=== PATIENT | male | born 1970 | race American Indian/Alaskan Native ===

== ENCOUNTER 2016-10-13 16:43 | Emergency (ER) | payer MEDICARE ==
--- NOTE | 2016-10-13 16:57 | Emergency Department Report ---
Chief Complaint: Psych Stated Complaint: MED CLEARANCE Time Seen by Provider: 10/13/16 16:48 - HPI History of Present Illness: PT states he needs medical clearance for detox. PT states he has spent the past few days using on the street, last use was last night. - ROS Review of Systems: + substance abuse - si - cp - Exam Vital Signs: Vital Signs 10/13/16 16:49 Temperature 98.5 F Pulse Rate 73 Respiratory 18 Rate Blood Pressure 115/84 O2 Sat by Pulse 100 Oximetry MSE screening note: Focused history and physical exam performed. Due to findings the following was ordered: labs ED Disposition for MSE Condition: Stable
[2016-10-13 17:35] LABS: Basophils % (Auto) 1.1 % (0.0-1.8); Eosinophils % (Auto) 6.1 % (0.0-4.3); Hematocrit 42.2 % (35.5-45.6); Hemoglobin 14.1 gm/dl (11.8-15.2); Mean Corpuscular HGB Conc 34 % (32-34); Mean Corpuscular Hemoglobin 30 pg (28-32); Mean Corpuscular Volume 90 fl (84-94); Platelet Count 252 K/mm3 (140-440); Red Cell Distribution Width 15.6 % (13.2-15.2); White Blood Count 9.6 K/mm3 (4.5-11.0)
[2016-10-13 17:50] LABS: Urine Drugs of Abuse Note Disclamer
[2016-10-13 18:04] LABS: Bilirubin,Urine NEG (Negative); Blood,Urine NEG (Negative); Ketones,Urine NEG (Negative); Leukocyte Esterase,Urine LG (Negative); Mucus,Urine FEW /HPF; Nitrite,Urine NEG (Negative); Protein,Urine <15 mg/dL mg/dL (Negative)
[2016-10-13 18:16] LABS: Alanine Aminotransferase 26 units/L (7-56); Albumin 3.9 g/dL (3.9-5); Albumin/Globulin Ratio 1.1 %; Alkaline Phosphatase 74 units/L (35-129); Anion Gap 19 mmol/L; Blood Urea Nitrogen 6 mg/dL (9-20); Calcium 8.9 mg/dL (8.4-10.2); Carbon Dioxide 26 mmol/L (22-30); Chloride 99.7 mmol/L (98-107); Glucose 95 mg/dL (75-100); Potassium 3.3 mmol/L (3.6-5.0); Sodium 141 mmol/L (137-145); Total Protein 7.5 g/dL (6.3-8.2)
[2016-10-13] MEDS ORDERED: K-DUR PO ONE (20:03)
[2016-10-13] MEDS ORDERED: BENTYL PO ONE (20:10)
[2016-10-13] MEDS ORDERED: CARAFATE PO ONE (20:10)
--- NOTE | 2016-10-13 20:11 | Emergency Department Report ---
ED Medical Clearance HPI - General Chief complaint: Psych Stated complaint: MED CLEARANCE Time Seen by Provider: 10/13/16 16:48 Source: patient, RN notes reviewed, old records reviewed Mode of arrival: Ambulatory Limitations: No Limitations - History of Present Illness Initial comments: This is a 46-year-old male. I have evaluated him in the past. Past medical history includes H. pylori, GI bleed, crack cocaine use, who presents to the ER for medical clearance for crack cocaine and alcohol detox. His last consumption was yesterday. He reports like he feels like he is withdrawing. He denies headache, neck pain, chest pain, severe abdominal pain, shortness of breath. He does describe diffuse body aches. He is not homicidal or suicidal. He does not have access to guns or firearms. He reports that he feels quite motivated to detox. He denies testicular pain, and denies irritative and obstructive urinary symptoms. MD Complaint: medical clearance request -: Sudden Reason for Medical Clearance: psychiatric condition Place: home Alledged Intoxication: No Compliant with Home Medications: No Traumatic Symptoms: denies traumatic injury Associated Symptoms: malaise. denies: chest pain, shortness of breath, palpitations, diaphoresis, confusion, cough, fever/chills, headaches Treatments Prior to Arrival: none Home medications: Previous Rx's Medication Instructions Recorded Last Taken Type Clarithromycin [Biaxin] 500 mg PO Q12HR #20 tablet 12/06/14 Unknown Rx Folic Acid [Folvite] 1 mg PO QDAY #30 tablet 12/06/14 Unknown Rx Nortriptyline [Pamelor] 50 mg PO QHS #30 capsule 12/06/14 Unknown Rx Pantoprazole [Protonix TAB] 40 mg PO BID #20 tablet 12/06/14 Unknown Rx Thiamine [Vitamin B-1] 100 mg PO QDAY #30 tablet 12/06/14 Unknown Rx metroNIDAZOLE [Flagyl TAB] 500 mg PO Q12H #20 tablet 12/06/14 Unknown Rx Potassium Chloride [K-Dur] 20 meq PO QDAY #7 tablet 10/13/16 Unknown Rx Allergies/Adverse reactions: Allergies Allergy/AdvReac Type Severity Reaction Status Date / Time Penicillins Allergy Swelling Verified 12/03/14 15:31 ED Review of Systems ROS: Stated complaint: MED CLEARANCE Other details as noted in HPI Constitutional: malaise Eyes: denies: vision change ENT: denies: epistaxis Respiratory: denies: cough Cardiovascular: denies: chest pain Gastrointestinal: denies: abdominal pain Genitourinary: denies: dysuria Musculoskeletal: myalgia. denies: back pain Skin: denies: lesions Neurological: weakness Psychiatric: denies: homicidal thoughts, suicidal thoughts ED Past Medical Hx - Past Medical History Previous Medical History?: Yes Hx Hypertension: Yes (noncompliant with meds) Hx Congestive Heart Failure: No Hx Diabetes: No Hx Psychiatric Treatment: Yes (ETOH, crack cocaine) Hx Asthma: No Hx COPD: No Additional medical history: chronic pain - Surgical History Past Surgical History?: Yes Additional Surgical History: right knee and maxillofacial surgery - Social History Smoking Status: Current Some Day Smoker Substance Use Type: Alcohol, Cocaine - Medications Home Medications: Home Medications Medication Instructions Recorded Confirmed Last Taken Type Clarithromycin [Biaxin] 500 mg PO Q12HR #20 tablet 12/06/14 Unknown Rx Folic Acid [Folvite] 1 mg PO QDAY #30 tablet 12/06/14 Unknown Rx Nortriptyline [Pamelor] 50 mg PO QHS #30 capsule 12/06/14 Unknown Rx Pantoprazole [Protonix TAB] 40 mg PO BID #20 tablet 12/06/14 Unknown Rx Thiamine [Vitamin B-1] 100 mg PO QDAY #30 tablet 12/06/14 Unknown Rx metroNIDAZOLE [Flagyl TAB] 500 mg PO Q12H #20 tablet 12/06/14 Unknown Rx Potassium Chloride [K-Dur] 20 meq PO QDAY #7 tablet 10/13/16 Unknown Rx ED Physical Exam - General Limitations: No Limitations General appearance: alert, in no apparent distress - Head Head exam: Present: atraumatic, normocephalic - Eye Eye exam: Present: normal appearance, PERRL, EOMI, other (visual acuity intact to finger counting, color perception, reading at a close distance). Absent: nystagmus - ENT ENT exam: Present: normal exam, normal orophraynx, mucous membranes moist, normal external ear exam - Neck Neck exam: Present: normal inspection, full ROM. Absent: tenderness, meningismus - Respiratory Respiratory exam: Present: normal lung sounds bilaterally. Absent: respiratory distress, wheezes, rales, rhonchi, stridor, chest wall tenderness, accessory muscle use, decreased breath sounds, prolonged expiratory - Cardiovascular Cardiovascular Exam: Present: regular rate, normal rhythm, normal heart sounds. Absent: bradycardia, tachycardia, irregular rhythm, systolic murmur, diastolic murmur, rubs, gallop - GI/Abdominal GI/Abdominal exam: Present: soft, normal bowel sounds. Absent: distended, tenderness, guarding, rebound, rigid, pulsatile mass - Rectal Rectal exam: Present: deferred - Extremities Exam Extremities exam: Present: normal inspection, full ROM, normal capillary refill. Absent: tenderness, pedal edema, joint swelling, calf tenderness - Back Exam Back exam: Present: normal inspection, full ROM. Absent: tenderness, CVA tenderness (R), CVA tenderness (L), muscle spasm, paraspinal tenderness, vertebral tenderness - Neurological Exam Neurological exam: Present: alert, oriented X3, normal gait, other (Extraocular movements intact. Tongue midline. No facial droop. Facial sensation intact to light touch in the V1, V2, V3 distribution bilaterally. 5 and 5 strength in 4 extremities.. Sensation is intact to light touch in 4 extremities.). Absent : motor sensory deficit - Psychiatric Psychiatric exam: Present: normal affect, normal mood. Absent: homicidal ideation, suicidal ideation - Skin Skin exam: Present: warm, dry, intact, normal color. Absent: rash ED Course Vital Signs 10/13/16 10/13/16 10/13/16 16:49 19:40 20:03 Temperature 98.5 F Pulse Rate 73 81 Respiratory 18 16 16 Rate Blood Pressure 115/84 Blood Pressure 109/74 [Left] O2 Sat by Pulse 100 99 99 Oximetry ED Medical Decision Making - Lab Data Result diagrams: 10/13/16 17:04 10/13/16 17:04 Vital Signs 10/13/16 10/13/16 16:49 20:03 Temperature 98.5 F Pulse Rate 73 Respiratory 18 16 Rate Blood Pressure 115/84 O2 Sat by Pulse 100 99 Oximetry Lab Results 10/13/16 10/13/16 10/13/16 Range/Units 17:04 17:04 17:04 WBC 9.6 (4.5-11.0) K/mm3 RBC 4.70 (3.65-5.03) M/mm3 Hgb 14.1 (11.8-15.2) gm/dl Hct 42.2 (35.5-45.6) % MCV 90 (84-94) fl MCH 30 (28-32) pg MCHC 34 (32-34) % RDW 15.6 H (13.2-15.2) % Plt Count 252 (140-440) K/mm3 Lymph % (Auto) 17.5 (13.4-35.0) % [place] % (Auto) 8.8 H (0.0-7.3) % Eos % (Auto) 6.1 H (0.0-4.3) % Baso % (Auto) 1.1 (0.0-1.8) % Lymph # 1.7 (1.2-5.4) K/mm3 [place] # 0.8 (0.0-0.8) K/mm3 Eos # 0.6 H (0.0-0.4) K/mm3 Baso # 0.1 (0.0-0.1) K/mm3 Seg Neutrophils % 66.5 (40.0-70.0) % Seg Neutrophils # 6.4 (1.8-7.7) K/mm3 Sodium 141 (137-145) mmol/L Potassium 3.3 L (3.6-5.0) mmol/L Chloride 99.7 (98-107) mmol/L Carbon Dioxide 26 (22-30) mmol/L Anion Gap 19 mmol/L BUN 6 L (9-20) mg/dL Creatinine 0.8 (0.8-1.5) mg/dL Estimated GFR > 60 ml/min BUN/Creatinine Ratio 7.50 % Glucose 95 (75-100) mg/dL Calcium 8.9 (8.4-10.2) mg/dL Magnesium (1.7-2.3) mg/dL Total Bilirubin 0.50 (0.1-1.2) mg/dL AST 28 (5-40) units/L ALT 26 (7-56) units/L Alkaline Phosphatase 74 (35-129) units/L Total Creatine Kinase (55-170) units/L Total Protein 7.5 (6.3-8.2) g/dL Albumin 3.9 (3.9-5) g/dL Albumin/Globulin Ratio 1.1 % Urine Color (Yellow) Urine Turbidity (Clear) Urine pH (5.0-7.0) Ur Specific [place] (1.003-1.030) Urine Protein (Negative) mg/dL Urine Glucose (UA) (Negative) mg/dL Urine Ketones (Negative) mg/dL Urine Blood (Negative) Urine Nitrite (Negative) Urine Bilirubin (Negative) Urine Urobilinogen (<2.0) mg/dL Ur Leukocyte Esterase (Negative) Urine WBC (Auto) (0.0-6.0) /HPF Urine RBC (Auto) (0.0-6.0) /HPF U Epithel Cells (Auto) (0-13.0) /HPF Urine Mucus /HPF Salicylates < 0.3 L (2.8-20.0) mg/dL Urine Opiates Screen Urine Methadone Screen Acetaminophen (10.0-30.0) ug/mL Ur Barbiturates Screen Ur Phencyclidine Scrn Ur Amphetamines Screen U Benzodiazepines Scrn Urine Cocaine Screen U Marijuana (THC) Screen Drugs of Abuse Note Plasma/Serum Alcohol (0-0.07) gm% 10/13/16 10/13/16 10/13/16 Range/Units 17:04 17:04 17:04 WBC (4.5-11.0) K/mm3 RBC (3.65-5.03) M/mm3 Hgb (11.8-15.2) gm/dl Hct (35.5-45.6) % MCV (84-94) fl MCH (28-32) pg MCHC (32-34) % RDW (13.2-15.2) % Plt Count (140-440) K/mm3 Lymph % (Auto) (13.4-35.0) % [place] % (Auto) (0.0-7.3) % Eos % (Auto) (0.0-4.3) % Baso % (Auto) (0.0-1.8) % Lymph # (1.2-5.4) K/mm3 [place] # (0.0-0.8) K/mm3 Eos # (0.0-0.4) K/mm3 Baso # (0.0-0.1) K/mm3 Seg Neutrophils % (40.0-70.0) % Seg Neutrophils # (1.8-7.7) K/mm3 Sodium (137-145) mmol/L Potassium (3.6-5.0) mmol/L Chloride (98-107) mmol/L Carbon Dioxide (22-30) mmol/L Anion Gap mmol/L BUN (9-20) mg/dL Creatinine (0.8-1.5) mg/dL Estimated GFR ml/min BUN/Creatinine Ratio % Glucose (75-100) mg/dL Calcium (8.4-10.2) mg/dL Magnesium 1.70 (1.7-2.3) mg/dL Total Bilirubin (0.1-1.2) mg/dL AST (5-40) units/L ALT (7-56) units/L Alkaline Phosphatase (35-129) units/L Total Creatine Kinase 185 H (55-170) units/L Total Protein (6.3-8.2) g/dL Albumin (3.9-5) g/dL Albumin/Globulin Ratio % Urine Color (Yellow) Urine Turbidity (Clear) Urine pH (5.0-7.0) Ur Specific [place] (1.003-1.030) Urine Protein (Negative) mg/dL Urine Glucose (UA) (Negative) mg/dL Urine Ketones (Negative) mg/dL Urine Blood (Negative) Urine Nitrite (Negative) Urine Bilirubin (Negative) Urine Urobilinogen (<2.0) mg/dL Ur Leukocyte Esterase (Negative) Urine WBC (Auto) (0.0-6.0) /HPF Urine RBC (Auto) (0.0-6.0) /HPF U Epithel Cells (Auto) (0-13.0) /HPF Urine Mucus /HPF Salicylates (2.8-20.0) mg/dL Urine Opiates Screen Urine Methadone Screen Acetaminophen < 15.0 (10.0-30.0) ug/mL Ur Barbiturates Screen Ur Phencyclidine Scrn Ur Amphetamines Screen U Benzodiazepines Scrn Urine Cocaine Screen U Marijuana (THC) Screen Drugs of Abuse Note Plasma/Serum Alcohol < 0.01 (0-0.07) gm% 10/13/16 10/13/16 Range/Units 17:47 17:47 WBC (4.5-11.0) K/mm3 RBC (3.65-5.03) M/mm3 Hgb (11.8-15.2) gm/dl Hct (35.5-45.6) % MCV (84-94) fl MCH (28-32) pg MCHC (32-34) % RDW (13.2-15.2) % Plt Count (140-440) K/mm3 Lymph % (Auto) (13.4-35.0) % [place] % (Auto) (0.0-7.3) % Eos % (Auto) (0.0-4.3) % Baso % (Auto) (0.0-1.8) % Lymph # (1.2-5.4) K/mm3 [place] # (0.0-0.8) K/mm3 Eos # (0.0-0.4) K/mm3 Baso # (0.0-0.1) K/mm3 Seg Neutrophils % (40.0-70.0) % Seg Neutrophils # (1.8-7.7) K/mm3 Sodium (137-145) mmol/L Potassium (3.6-5.0) mmol/L Chloride (98-107) mmol/L Carbon Dioxide (22-30) mmol/L Anion Gap mmol/L BUN (9-20) mg/dL Creatinine (0.8-1.5) mg/dL Estimated GFR ml/min BUN/Creatinine Ratio % Glucose (75-100) mg/dL Calcium (8.4-10.2) mg/dL Magnesium (1.7-2.3) mg/dL Total Bilirubin (0.1-1.2) mg/dL AST (5-40) units/L ALT (7-56) units/L Alkaline Phosphatase (35-129) units/L Total Creatine Kinase (55-170) units/L Total Protein (6.3-8.2) g/dL Albumin (3.9-5) g/dL Albumin/Globulin Ratio % Urine Color Yellow (Yellow) Urine Turbidity Clear (Clear) Urine pH 6.0 (5.0-7.0) Ur Specific [place] 1.015 (1.003-1.030) Urine Protein <15 mg/dl (Negative) mg/dL Urine Glucose (UA) Neg (Negative) mg/dL Urine Ketones Neg (Negative) mg/dL Urine Blood Neg (Negative) Urine Nitrite Neg (Negative) Urine Bilirubin Neg (Negative) Urine Urobilinogen 4.0 (<2.0) mg/dL Ur Leukocyte Esterase Lg (Negative) Urine WBC (Auto) 47.0 H (0.0-6.0) /HPF Urine RBC (Auto) 5.0 (0.0-6.0) /HPF U Epithel Cells (Auto) 5.0 (0-13.0) /HPF Urine Mucus Few /HPF Salicylates (2.8-20.0) mg/dL Urine Opiates Screen Presumptive negative Urine Methadone Screen Presumptive negative Acetaminophen (10.0-30.0) ug/mL Ur Barbiturates Screen Presumptive negative Ur Phencyclidine Scrn Presumptive negative Ur Amphetamines Screen Presumptive negative U Benzodiazepines Scrn Presumptive negative Urine Cocaine Screen Presumptive positive U Marijuana (THC) Screen Presumptive negative Drugs of Abuse Note Disclamer Plasma/Serum Alcohol (0-0.07) gm% - Medical Decision Making Differential diagnosis: Polysubstance abuse, electrolyte derangement, medical clearance for psychiatric placement, medical clearance for detox Assessment and plan: 46-year-old male requesting detox. He is clinically sober at this time, walks with a steady gait, has a GCS of 15, with an NIH score of 0. Laboratory studies unremarkable with the exception of mild hypokalemia. This is repleted. Patient tolerating liquid feeds. Does not meet criteria for requiring 1013 or involuntary hold. At this point in time, there does not appear to be any immediate medical contraindication to psychiatric admission/ evaluation/detox. Patient was seen in conjunction with the crisis team, and he was provided appropriate outpatient resources for detox. He will be discharged at this time. ED Disposition Clinical Impression: Polysubstance abuse Disposition: DC-01 TO HOME OR SELFCARE Is pt being admited?: No Does the pt Need Aspirin: No Condition: Stable Instructions: Polysubstance Abuse (ED) Additional Instructions: Discontinue consumption of crack cocaine and ethanol alcohol. These are not healthy. At this point in time, there is no immediate medical contraindication to detox therapy. The patient may follow-up at [facility] detox: [address] [address] Free Assessments 28/09 (t) Please return to the ER right away with fevers, chills, chest pain, shortness of breath, confusion, intractable nausea or vomiting, inability to tolerate liquid feeds. Take the potassium supplementation as directed. Follow up with a primary care doctor within the next month. Prescriptions: Potassium Chloride [K-Dur] 20 meq PO QDAY #7 tablet Referrals: PRIMARY CARE,MD [Primary Care Provider] - 3-5 Days MICHELLE NOVA MD [Staff Physician] - 3-5 Days [facility] [Provider Group] - 3-5 Days
[2016-10-13 20:27] LABS: Magnesium 1.7 mg/dL (1.7-2.3)
[2016-10-13 22:17] VITALS: BP 109/74
== END 2016-10-13 22:15 | disposition home or self-care (01) ==
LOC: ED 16:43
DX: F14.10 Cocaine abuse, uncomplicated (principal); G89.29 Other chronic pain; F17.200 Nicotine dependence, unspecified, uncomplicated; Z88.0 Allergy status to penicillin
CPT/HCPCS: 36415; 80053; 80307; 81001; 82550; 83735; 85025; 99284; G0480; 80320

== ENCOUNTER 2017-02-06 12:44 | Emergency (ER) | payer MEDICARE ==
--- NOTE | 2017-02-06 13:47 | Cat Scan Report ---
CT SCAN OF THE CERVICAL SPINE: HISTORY: Swelling, injury. TECHNIQUE: Contiguous 1.25 mm axial images of the cervical spine were obtained. Sagittal and coronal reformatted images. FINDINGS: There is normal alignment of the cervical spine. The body, pedicles and posterior ligaments appear normal. No evidence of fracture or subluxation is seen. Mild multilevel degenerative changes are identified which are most pronounced at C5-6. The spinal canal appears normal. The prevertebral soft tissues appear normal. IMPRESSION: Mild cervical spondylosis. No acute process is noted.
--- NOTE | 2017-02-06 13:47 | Cat Scan Report ---
CT HEAD WITHOUT CONTRAST: HISTORY: Swelling, head injury. TECHNIQUE: Sequential 2.5mm CT images. COMPARISON: none. FINDINGS: Cerebral Parenchyma: Within normal limits. Cerebellum: Within normal limits. Brainstem: Within normal limits. Ventricles: Normal. Sella: Normal. Extra-axial spaces: Normal. Basal Cisterns: Normal. Intracranial Hemorrhage: None. Midline Shift: None. Calvarium: Normal. There is moderate left frontal soft tissue swelling or hematoma. Sinuses: Normal. Mastoid Air Cells: Normal. Visualized Orbits: Normal. IMPRESSION: Cranial CT scan within normal limits. Left frontal soft tissue swelling.
--- NOTE | 2017-02-06 13:50 | Cat Scan Report ---
CT FACIAL BONES WITHOUT CONTRAST: HISTORY: Injury, swelling to face. TECHNIQUE: Helical CT images with sagittal and coronal CT reformations. FINDINGS: Left frontal soft tissue swelling. There has been previous internal fixation of a left inferior orbital wall fracture and left lateral orbital rim fracture, correlate with history. Chronic appearing bilateral nasal bone fractures are also suspected. No acute facial fracture is visualized. The mandible is intact. There is mild mucosal thickening throughout the frontal, maxillary and ethmoid sinuses. The mastoid air cells are clear. There is poor dentition. IMPRESSION: Left frontal soft tissue swelling. Chronic facial fractures as described. No acute facial fracture is detected.
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
[2017-02-06] MEDS ORDERED: ANCEF IM ONE (16:09)
[2017-02-06] MEDS ORDERED: BOOSTRIX IM ONE (16:09)
[2017-02-06] MEDS ORDERED: TRIPLE ANTIBIOTIC TP ONE ×2 (17:26→17:29)
[2017-02-06 17:35] VITALS: BP 122/80
== END 2017-02-06 18:20 | disposition home or self-care (01) ==
LOC: ED 12:44
DX: S00.81XA Abrasion of other part of head, initial encounter (principal); Y08.89XA Assault by other specified means, initial encounter; Y93.89 Activity, other specified; Y92.89 Other specified places as the place of occurrence of the external cause; Y99.8 Other external cause status; I10 Essential (primary) hypertension; F17.200 Nicotine dependence, unspecified, uncomplicated
CPT/HCPCS: 70450; 70486; 72125; 90471; 90715; 96372; 99284; J0690; A6250

== ENCOUNTER 2018-08-31 09:55 | Emergency (ER) | payer MEDICARE ==
[2018-08-31 10:01] VITALS: BP 110/87
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
[2018-08-31] MEDS ORDERED: TORADOL IM ONE (12:16)
== END 2018-08-31 12:39 | disposition home or self-care (01) ==
LOC: ED 09:55
DX: S51.811D Laceration without foreign body of right forearm, subsequent encounter (principal); L03.113 Cellulitis of right upper limb; L08.9 Local infection of the skin and subcutaneous tissue, unspecified; I10 Essential (primary) hypertension; G89.29 Other chronic pain; Z98.890 Other specified postprocedural states; F17.200 Nicotine dependence, unspecified, uncomplicated; Z79.899 Other long term (current) drug therapy; Z88.0 Allergy status to penicillin; X58.XXXD Exposure to other specified factors, subsequent encounter
CPT/HCPCS: 96372; 99282; J1885

== ENCOUNTER 2018-09-07 02:59 | Emergency (ER) | payer MEDICARE ==
[2018-09-07 03:38] LABS: Basophils # (Auto) 0.1 K/mm3 (0.0-0.1); Basophils % (Auto) 1.2 % (0.0-1.8); Eosinophils # (Auto) 0.2 K/mm3 (0.0-0.4); Eosinophils % (Auto) 2.2 % (0.0-4.3); Hematocrit 34.8 % (35.5-45.6); Hemoglobin 11.7 gm/dl (11.8-15.2); Lymphocytes % (Auto) 19.1 % (13.4-35.0); Mean Corpuscular HGB Conc 34 % (32-34); Mean Corpuscular Volume 87 fl (84-94); Monocytes # (Auto) 0.6 K/mm3 (0.0-0.8); Monocytes % (Auto) 5.5 % (0.0-7.3); Platelet Count 286 K/mm3 (140-440); Red Cell Distribution Width 16.2 % (13.2-15.2)
[2018-09-07 04:19] LABS: BUN/Creatinine Ratio 7; Blood Urea Nitrogen 7 mg/dL (9-20); Calcium 8.9 mg/dL (8.4-10.2); Hemolysis Index 3
[2018-09-07 04:22] LABS: Bacteria,Urine 1+ /HPF (Negative); Bilirubin,Urine NEG (Negative); Blood,Urine NEG (Negative); Color,Urine Yellow (Yellow); Mucus,Urine FEW /HPF; Protein,Urine <15 mg/dL mg/dL (Negative); Urobilinogen,Urine < 2.0 mg/dL (<2.0)
[2018-09-07 04:23] LABS: WBC,Urine > 182.0 /HPF (0.0-6.0)
[2018-09-07 04:27] LABS: Amphetamine Screen,Urine PRESUMPTIVE NEGATIVE; Benzodiazepines Screen,Urine PRESUMPTIVE NEGATIVE; Cannabinoid Screen,Urine PRESUMPTIVE NEGATIVE; Methadone Screen,Urine PRESUMPTIVE NEGATIVE; Opiate Screen,Urine PRESUMPTIVE NEGATIVE
[2018-09-07 04:57] LABS: Cocaine Screen,Urine PRESUMPTIVE POSITIVE
[2018-09-07 05:22] VITALS: BP 128/82
[2018-09-07] MEDS ORDERED: K-DUR PO ONE (07:41)
--- NOTE | 2018-09-07 07:46 | Emergency Department Report ---
ED General Adult HPI - General Chief complaint: Medical Clearance Stated complaint: MED CLEARANCE Time Seen by Provider: 09/07/18 06:55 Source: patient, RN notes reviewed, old records reviewed Mode of arrival: Ambulatory Limitations: No Limitations - History of Present Illness Initial comments: This is a 48-year-old gentleman. I have evaluated this patient in the past. His past medical history includes crack cocaine use, alcohol use, H. pylori Patient presents to the emergency room today with a primary complaint of request for detox for alcohol. He endorses chronic migrainous headaches, frontal and bitemporal, although, he states that this is his typical headache. The patient denies a sudden or thunderclap headache. He denies other symptoms. He denies urinary symptoms. He is not homicidal or suicidal. The headache is intermittent, does not radiate anywhere, and does not have exacerbating or relieving factors that he is aware of, besides [id number] medications. He was recently seen in this department for suture repair, found to have a superficial right upper extremity infection, and initiated on Bactrim antibiotic therapy, which she states she has intermittent compliance with. Location: head Severity scale (0 -10): 0 Quality: aching Consistency: intermittent Improves with: medication Worsens with: none - Related Data Previous Rx's Medication Instructions Recorded Last Taken Type Clarithromycin [Biaxin] 500 mg PO Q12HR #20 tablet 12/06/14 Unknown Rx Folic Acid [Folvite] 1 mg PO QDAY #30 tablet 12/06/14 Unknown Rx Nortriptyline(Nf) [Pamelor(Nf)] 50 mg PO QHS #30 capsule 12/06/14 Unknown Rx Pantoprazole [Protonix TAB] 40 mg PO BID #20 tablet 12/06/14 Unknown Rx Thiamine [Vitamin B-1] 100 mg PO QDAY #30 tablet 12/06/14 Unknown Rx metroNIDAZOLE [Flagyl TAB] 500 mg PO Q12H #20 tablet 12/06/14 Unknown Rx Potassium Chloride [K-Dur] 20 meq PO QDAY #7 tablet 10/13/16 Unknown Rx Ibuprofen [Motrin] 600 mg PO Q8H PRN #30 tablet 07/11/18 Unknown Rx Ibuprofen [Motrin 800 MG tab] 800 mg PO Q8HR PRN #20 tablet 08/31/18 Unknown Rx Sulfamethoxazole/Trimethoprim 1 each PO BID #14 tablet 08/31/18 Unknown Rx [Bactrim DS TAB] Allergies Allergy/AdvReac Type Severity Reaction Status Date / Time Penicillins Allergy Swelling Verified 02/06/17 12:49 ED Review of Systems ROS: Stated complaint: MED CLEARANCE Other details as noted in HPI Constitutional: denies: fever Eyes: denies: eye discharge Respiratory: denies: cough Cardiovascular: denies: chest pain Gastrointestinal: denies: abdominal pain Genitourinary: denies: urgency, dysuria, frequency, hematuria, testicular pain Musculoskeletal: denies: myalgia Skin: lesions (right upper extremity) Neurological: denies: weakness, numbness, paresthesias, confusion Psychiatric: denies: homicidal thoughts, suicidal thoughts ED Past Medical Hx - Past Medical History Previous Medical History?: Yes Hx Hypertension: Yes (noncompliant with meds) Hx Congestive Heart Failure: No Hx Diabetes: No Hx Seizures: Yes Hx Psychiatric Treatment: Yes (ETOH, crack cocaine) Hx Asthma: No Hx COPD: No Additional medical history: chronic pain - Surgical History Past Surgical History?: Yes Additional Surgical History: right ankle and maxillofacial surgery - Social History Smoking Status: Current Every Day Smoker Substance Use Type: Alcohol - Medications Home Medications: Home Medications Medication Instructions Recorded Confirmed Last Taken Type Clarithromycin [Biaxin] 500 mg PO Q12HR #20 tablet 12/06/14 Unknown Rx Folic Acid [Folvite] 1 mg PO QDAY #30 tablet 12/06/14 Unknown Rx Nortriptyline(Nf) [Pamelor(Nf)] 50 mg PO QHS #30 capsule 12/06/14 Unknown Rx Pantoprazole [Protonix TAB] 40 mg PO BID #20 tablet 12/06/14 Unknown Rx Thiamine [Vitamin B-1] 100 mg PO QDAY #30 tablet 12/06/14 Unknown Rx metroNIDAZOLE [Flagyl TAB] 500 mg PO Q12H #20 tablet 12/06/14 Unknown Rx Potassium Chloride [K-Dur] 20 meq PO QDAY #7 tablet 10/13/16 Unknown Rx Ibuprofen [Motrin] 600 mg PO Q8H PRN #30 tablet 07/11/18 Unknown Rx Ibuprofen [Motrin 800 MG tab] 800 mg PO Q8HR PRN #20 tablet 08/31/18 Unknown Rx Sulfamethoxazole/Trimethoprim 1 each PO BID #14 tablet 08/31/18 Unknown Rx [Bactrim DS TAB] ED Physical Exam - General Limitations: No Limitations General appearance: alert, in no apparent distress - Head Head exam: Present: atraumatic, normocephalic - Eye Eye exam: Present: normal appearance, EOMI. Absent: nystagmus - ENT ENT exam: Present: normal exam, normal orophraynx, mucous membranes moist, normal external ear exam - Neck Neck exam: Present: normal inspection, full ROM. Absent: tenderness, meningismus - Respiratory Respiratory exam: Present: normal lung sounds bilaterally. Absent: respiratory distress - Cardiovascular Cardiovascular Exam: Present: regular rate, normal rhythm, normal heart sounds. Absent: bradycardia, tachycardia, irregular rhythm, systolic murmur, diastolic murmur, rubs, gallop - GI/Abdominal GI/Abdominal exam: Present: soft. Absent: distended, tenderness, guarding, rebound, rigid, pulsatile mass - Rectal Rectal exam: Present: deferred - Extremities Exam Extremities exam: Present: normal inspection, full ROM, other (2+ pulses noted in the bilateral upper, lower extremities. Compartments soft. No long bony tenderness. The pelvis is stable.). Absent: pedal edema, calf tenderness - Back Exam Back exam: Present: normal inspection, full ROM. Absent: tenderness, CVA tenderness (R), CVA tenderness (L), paraspinal tenderness, vertebral tenderness - Neurological Exam Neurological exam: Present: alert, oriented X3, normal gait, other (Extraocular movements intact. Tongue midline. No facial droop. Facial sensation intact to light touch in the V1, V2, V3 distribution bilaterally. 5 and 5 strength in 4 extremities.. Sensation is intact to light touch in 4 extremities.). Absent: motor sensory deficit - Psychiatric Psychiatric exam: Present: normal affect, normal mood - Skin Skin exam: Present: warm, other (there is no redness, pus or streaking noted on the right upper extremity. Healing laceration is noted). Absent: rash ED Course Vital Signs 09/07/18 09/07/18 05:21 05:45 Pulse Rate 89 Respiratory 16 16 Rate Blood Pressure 128/82 [Right] O2 Sat by Pulse 98 99 Oximetry ED Medical Decision Making - Lab Data Result diagrams: 09/07/18 03:17 09/07/18 03:17 Vital Signs 09/07/18 09/07/18 05:21 05:45 Pulse Rate 89 Respiratory 16 16 Rate Blood Pressure 128/82 [Right] O2 Sat by Pulse 98 99 Oximetry Lab Results 09/07/18 09/07/18 09/07/18 Range/Units 03:14 03:14 03:17 WBC (4.5-11.0) K/mm3 RBC (3.65-5.03) M/mm3 Hgb (11.8-15.2) gm/dl Hct (35.5-45.6) % MCV (84-94) fl MCH (28-32) pg MCHC (32-34) % RDW (13.2-15.2) % Plt Count (140-440) K/mm3 Lymph % (Auto) (13.4-35.0) % Fisher % (Auto) (0.0-7.3) % Eos % (Auto) (0.0-4.3) % Baso % (Auto) (0.0-1.8) % Lymph # (1.2-5.4) K/mm3 Fisher # (0.0-0.8) K/mm3 Eos # (0.0-0.4) K/mm3 Baso # (0.0-0.1) K/mm3 Seg Neutrophils % (40.0-70.0) % Seg Neutrophils # (1.8-7.7) K/mm3 Sodium (137-145) mmol/L Potassium (3.6-5.0) mmol/L Chloride (98-107) mmol/L Carbon Dioxide (22-30) mmol/L Anion Gap mmol/L BUN (9-20) mg/dL Creatinine (0.8-1.5) mg/dL Estimated GFR ml/min BUN/Creatinine Ratio % Glucose (75-100) mg/dL Calcium (8.4-10.2) mg/dL Magnesium (1.7-2.3) mg/dL Total Creatine Kinase (55-170) units/L Urine Color Yellow (Yellow) Urine Turbidity Cloudy (Clear) Urine pH 5.0 (5.0-7.0) Ur Specific [place] 1.017 (1.003-1.030) Urine Protein <15 mg/dl (Negative) mg/dL Urine Glucose (UA) Neg (Negative) mg/dL Urine Ketones Neg (Negative) mg/dL Urine Blood Neg (Negative) Urine Nitrite Neg (Negative) Urine Bilirubin Neg (Negative) Urine Urobilinogen < 2.0 (<2.0) mg/dL Ur Leukocyte Esterase Lg (Negative) Urine WBC (Auto) > 182.0 H (0.0-6.0) /HPF Urine RBC (Auto) 6.0 (0.0-6.0) /HPF U Epithel Cells (Auto) 1.0 (0-13.0) /HPF Urine Bacteria (Auto) 1+ (Negative) /HPF Urine Mucus Few /HPF Salicylates < 0.3 L (2.8-20.0) mg/dL Urine Opiates Screen Presumptive negative Urine Methadone Screen Presumptive negative Acetaminophen (10.0-30.0) ug/mL Ur Barbiturates Screen Presumptive negative Ur Phencyclidine Scrn Presumptive negative Ur Amphetamines Screen Presumptive negative U Benzodiazepines Scrn Presumptive negative Urine Cocaine Screen Presumptive positive U Marijuana (THC) Screen Presumptive negative Drugs of Abuse Note Disclamer Plasma/Serum Alcohol (0-0.07) % 09/07/18 09/07/18 09/07/18 Range/Units 03:17 03:17 03:17 WBC (4.5-11.0) K/mm3 RBC (3.65-5.03) M/mm3 Hgb (11.8-15.2) gm/dl Hct (35.5-45.6) % MCV (84-94) fl MCH (28-32) pg MCHC (32-34) % RDW (13.2-15.2) % Plt Count (140-440) K/mm3 Lymph % (Auto) (13.4-35.0) % Fisher % (Auto) (0.0-7.3) % Eos % (Auto) (0.0-4.3) % Baso % (Auto) (0.0-1.8) % Lymph # (1.2-5.4) K/mm3 Fisher # (0.0-0.8) K/mm3 Eos # (0.0-0.4) K/mm3 Baso # (0.0-0.1) K/mm3 Seg Neutrophils % (40.0-70.0) % Seg Neutrophils # (1.8-7.7) K/mm3 Sodium 137 (137-145) mmol/L Potassium 3.3 L (3.6-5.0) mmol/L Chloride 102.1 (98-107) mmol/L Carbon Dioxide 24 (22-30) mmol/L Anion Gap 14 mmol/L BUN 7 L (9-20) mg/dL Creatinine 1.0 (0.8-1.5) mg/dL Estimated GFR > 60 ml/min BUN/Creatinine Ratio 7 % Glucose 124 H (75-100) mg/dL Calcium 8.9 (8.4-10.2) mg/dL Magnesium (1.7-2.3) mg/dL Total Creatine Kinase (55-170) units/L Urine Color (Yellow) Urine Turbidity (Clear) Urine pH (5.0-7.0) Ur Specific [place] (1.003-1.030) Urine Protein (Negative) mg/dL Urine Glucose (UA) (Negative) mg/dL Urine Ketones (Negative) mg/dL Urine Blood (Negative) Urine Nitrite (Negative) Urine Bilirubin (Negative) Urine Urobilinogen (<2.0) mg/dL Ur Leukocyte Esterase (Negative) Urine WBC (Auto) (0.0-6.0) /HPF Urine RBC (Auto) (0.0-6.0) /HPF U Epithel Cells (Auto) (0-13.0) /HPF Urine Bacteria (Auto) (Negative) /HPF Urine Mucus /HPF Salicylates (2.8-20.0) mg/dL Urine Opiates Screen Urine Methadone Screen Acetaminophen < 5.0 L (10.0-30.0) ug/mL Ur Barbiturates Screen Ur Phencyclidine Scrn Ur Amphetamines Screen U Benzodiazepines Scrn Urine Cocaine Screen U Marijuana (THC) Screen Drugs of Abuse Note Plasma/Serum Alcohol < 0.01 (0-0.07) % 09/07/18 09/07/18 Range/Units 03:17 03:17 WBC 10.5 (4.5-11.0) K/mm3 RBC 4.00 (3.65-5.03) M/mm3 Hgb 11.7 L (11.8-15.2) gm/dl Hct 34.8 L (35.5-45.6) % MCV 87 (84-94) fl MCH 29 (28-32) pg MCHC 34 (32-34) % RDW 16.2 H (13.2-15.2) % Plt Count 286 (140-440) K/mm3 Lymph % (Auto) 19.1 (13.4-35.0) % Fisher % (Auto) 5.5 (0.0-7.3) % Eos % (Auto) 2.2 (0.0-4.3) % Baso % (Auto) 1.2 (0.0-1.8) % Lymph # 2.0 (1.2-5.4) K/mm3 Fisher # 0.6 (0.0-0.8) K/mm3 Eos # 0.2 (0.0-0.4) K/mm3 Baso # 0.1 (0.0-0.1) K/mm3 Seg Neutrophils % 72.0 H (40.0-70.0) % Seg Neutrophils # 7.5 (1.8-7.7) K/mm3 Sodium (137-145) mmol/L Potassium (3.6-5.0) mmol/L Chloride (98-107) mmol/L Carbon Dioxide (22-30) mmol/L Anion Gap mmol/L BUN (9-20) mg/dL Creatinine (0.8-1.5) mg/dL Estimated GFR ml/min BUN/Creatinine Ratio % Glucose (75-100) mg/dL Calcium (8.4-10.2) mg/dL Magnesium 1.90 (1.7-2.3) mg/dL Total Creatine Kinase 141 (55-170) units/L Urine Color (Yellow) Urine Turbidity (Clear) Urine pH (5.0-7.0) Ur Specific [place] (1.003-1.030) Urine Protein (Negative) mg/dL Urine Glucose (UA) (Negative) mg/dL Urine Ketones (Negative) mg/dL Urine Blood (Negative) Urine Nitrite (Negative) Urine Bilirubin (Negative) Urine Urobilinogen (<2.0) mg/dL Ur Leukocyte Esterase (Negative) Urine WBC (Auto) (0.0-6.0) /HPF Urine RBC (Auto) (0.0-6.0) /HPF U Epithel Cells (Auto) (0-13.0) /HPF Urine Bacteria (Auto) (Negative) /HPF Urine Mucus /HPF Salicylates (2.8-20.0) mg/dL Urine Opiates Screen Urine Methadone Screen Acetaminophen (10.0-30.0) ug/mL Ur Barbiturates Screen Ur Phencyclidine Scrn Ur Amphetamines Screen U Benzodiazepines Scrn Urine Cocaine Screen U Marijuana (THC) Screen Drugs of Abuse Note Plasma/Serum Alcohol (0-0.07) % - EKG Data -: EKG Interpreted by Me EKG shows normal: sinus rhythm Rate: normal - EKG Data When compared to previous EKG there are: no significant change 09/07/18 07:44 This is a normal sinus rhythm, 80 bpm, normal axis, normal intervals, not consistent with ST elevation myocardial infarction, this is an unremarkable EKG. This EKG appears to be unchanged from prior EKG from 07/11/2018. - Medical Decision Making Differential diagnosis, including not limited to: Medical clearance, migraine headache, asymptomatic bacteriuria Assessment and plan: 48-year-old gentleman with a primary request for medical clearance for alcohol detox. The patient is afebrile, clinically sober, and walks with a steady gait. He endorses chronic headache, and does not endorse any red flag signs or symptoms. He has a normal and appropriate neurologic examination. He walks with a steady gait. Screening laboratory studies are reviewed, and are essentially unremarkable, with the exception of minimal hypokalemia, which is corrected in the emergency room, and presumed asymptomatic bacteriuria. Patient was prescribed ibuprofen and Bactrim a few days ago. The patient will be counseled to remain compliant with his pain medication and antibiotic therapy, and at this point in time, he does not appear to have an immediate medical contraindication to outpatient detox. Critical care attestation.: If time is entered above; I have spent that time in minutes in the direct care of this critically ill patient, excluding procedure time. ED Disposition Clinical Impression: Medical clearance for psychiatric admission Disposition: [id number] TO HOME OR SELFCARE Is pt being admited?: No Does the pt Need Aspirin: No Condition: Stable Additional Instructions: Cultures were sent today, and results will be available in the next 3-5 days. Continue current outpatient medications. Please have a primary care doctor contact medical records department to obtain culture results. Laboratory studies demonstrated decreased potassium, which was corrected in the emergency room, and presumed bacteria in the urine which is not causing symptoms. Both of these should be followed up by a primary care doctor within the next month. Please return to the emergency room right away with new, worsening or different symptoms not present on the initial emergency room evaluation. Referrals: SAEID NOGUERA MD [Primary Care Provider] - 3-5 Days [facility] [Provider Group] - 3-5 Days
== END 2018-09-07 08:21 | disposition home or self-care (01) ==
LOC: ED 02:59
DX: G43.709 Chronic migraine without aura, not intractable, without status migrainosus (principal); F14.90 Cocaine use, unspecified, uncomplicated; I10 Essential (primary) hypertension; F17.200 Nicotine dependence, unspecified, uncomplicated; G89.29 Other chronic pain; Z98.890 Other specified postprocedural states; Z79.1 Long term (current) use of non-steroidal anti-inflammatories (NSAID); Z88.0 Allergy status to penicillin; Z79.899 Other long term (current) drug therapy
CPT/HCPCS: 36415; 80048; 80307; 81001; 82550; 83735; 85025; 87086; 93005; 93010; 99283; G0480; 80320

== ENCOUNTER 2018-10-17 19:46 | Emergency (ER) | payer MEDICARE ==
[2018-10-17] MEDS ORDERED: NACL 0.9% 1000 ML 1,000 ML IV ONE (20:33)
--- NOTE | 2018-10-17 20:53 | Emergency Department Report ---
HPI - General Chief Complaint: Alcohol Time Seen by Provider: 10/17/18 20:07 - HPI HPI: 48-year-old -[place] male presents to the emergency department with the complaints of suicidal ideations. The patient says that he drank a fifth of alcohol and did in June and intent to overdose. He does not give any specific reason as to why he is thinking about harming himself but just keeps saying "I messed up." He does admit to daily cocaine use. He denies daily alcohol use but does use it regularly. He has a past medical history of hypertension, seizures and chronic pain. ED Past Medical Hx - Past Medical History Hx Hypertension: Yes (noncompliant with meds) Hx Congestive Heart Failure: No Hx Diabetes: No Hx Seizures: Yes Hx Psychiatric Treatment: Yes (ETOH, crack cocaine) Hx Asthma: No Hx COPD: No Additional medical history: chronic pain - Surgical History Additional Surgical History: right ankle and maxillofacial surgery - Social History Smoking Status: Current Every Day Smoker Substance Use Type: Alcohol - Medications Home Medications: Home Medications Medication Instructions Recorded Confirmed Last Taken Type Clarithromycin [Biaxin] 500 mg PO Q12HR #20 tablet 12/06/14 Unknown Rx Folic Acid [Folvite] 1 mg PO QDAY #30 tablet 12/06/14 Unknown Rx Nortriptyline(Nf) [Pamelor(Nf)] 50 mg PO QHS #30 capsule 12/06/14 Unknown Rx Pantoprazole [Protonix TAB] 40 mg PO BID #20 tablet 12/06/14 Unknown Rx Thiamine [Vitamin B-1] 100 mg PO QDAY #30 tablet 12/06/14 Unknown Rx metroNIDAZOLE [Flagyl TAB] 500 mg PO Q12H #20 tablet 12/06/14 Unknown Rx Potassium Chloride [K-Dur] 20 meq PO QDAY #7 tablet 10/13/16 Unknown Rx Ibuprofen [Motrin] 600 mg PO Q8H PRN #30 tablet 07/11/18 Unknown Rx Ibuprofen [Motrin 800 MG tab] 800 mg PO Q8HR PRN #20 tablet 08/31/18 Unknown Rx Sulfamethoxazole/Trimethoprim 1 each PO BID #14 tablet 08/31/18 Unknown Rx [Bactrim DS TAB] Nitrofurantoin [place]/M-Cryst 100 mg PO Q12HR #14 capsule 10/18/18 Unknown Rx [Macrobid CAP] ED Review of Systems ROS: Stated complaint: ETOH Other details as noted in HPI Comment: All other systems reviewed and negative Constitutional: denies: chills, fever Eyes: denies: eye pain, vision change ENT: denies: ear pain, throat pain Respiratory: denies: cough, shortness of breath Cardiovascular: denies: chest pain, palpitations Gastrointestinal: denies: abdominal pain, vomiting Genitourinary: denies: dysuria, discharge Musculoskeletal: denies: back pain, joint swelling Skin: denies: rash, lesions Neurological: denies: headache, weakness Physical Exam - Physical Exam Physical Exam: GENERAL: The patient is well-developed well-nourished. HENT: Normocephalic. Atraumatic. Patient has moist mucous membranes. EYES: Extraocular motions are intact. NECK: Supple. Trachea is midline. CHEST/LUNGS: Clear to auscultation. There is no respiratory distress noted. HEART/CARDIOVASCULAR: Regular. There is no tachycardia. There is no murmur. ABDOMEN: Abdomen is soft, nontender. Patient has normal bowel sounds. There is no abdominal distention. SKIN: Skin is warm and dry. NEURO: The patient is awake and oriented but does appear intoxicated. The patient has no focal neurologic deficits. The patient has normal speech. MUSCULOSKELETAL: There is no tenderness or deformity. There is no limitation range of motion. There is no evidence of acute injury. ED Medical Decision Making - Lab Data Result diagrams: 10/17/18 20:46 10/17/18 20:46 - Medical Decision Making Patient presents to the emergency department admitting to alcohol and cocaine use. He also complains of suicidal thoughts and says that this most recent polysubstance abuse was an attempt at overdose. He has been made a 1013. His initial blood alcohol level was 0.27. He was given some IV fluid resuscitation including a banana bag and currently his blood alcohol level is down to 0.1. Patient has some elevated transaminase levels and a mild urinary tract infect ion. The rest of his blood work has been unremarkable. He has no complaints of any abdominal pain. He has been started on Macrobid for the urinary tract infection. His vital signs are stable throughout his ED course. The patient appears medically cleared for psychiatric placement. - Differential Diagnosis polysubstance abuse, bipolar disorder, depression Critical Care Time: No Critical care attestation.: If time is entered above; I have spent that time in minutes in the direct care of this critically ill patient, excluding procedure time. ED Disposition Clinical Impression: Cocaine abuse, Suicidal ideations Alcohol intoxication Qualifiers: Complication of substance-induced condition: uncomplicated Qualified Code(s): F10.920 - Alcohol use, unspecified with intoxication, uncomplicated Disposition: DC/TX-65 PSY HOSP/PSY UNIT Is pt being admited?: No Condition: Stable Prescriptions: Nitrofurantoin [place]/M-Cryst [Macrobid CAP] 100 mg PO Q12HR #14 capsule Time of Disposition: 05:50
[2018-10-17 21:04] LABS: Basophils # (Auto) 0.1 K/mm3 (0.0-0.1); Basophils % (Auto) 0.7 % (0.0-1.8); Eosinophils # (Auto) 0.2 K/mm3 (0.0-0.4); Eosinophils % (Auto) 1.9 % (0.0-4.3); Hematocrit 36.3 % (35.5-45.6); Hemoglobin 12.5 gm/dl (11.8-15.2); Lymphocytes # (Auto) 1.8 K/mm3 (1.2-5.4); Lymphocytes % (Auto) 18.3 % (13.4-35.0); Mean Corpuscular HGB Conc 34 % (32-34); Mean Corpuscular Volume 84 fl (84-94); Monocytes # (Auto) 0.6 K/mm3 (0.0-0.8); Monocytes % (Auto) 6.2 % (0.0-7.3); Platelet Count 151 K/mm3 (140-440); Red Blood Count 4.31 M/mm3 (3.65-5.03); Red Cell Distribution Width 17.7 % (13.2-15.2)
[2018-10-17] MEDS ORDERED: VITAMIN B-1 100 MG, FOLVITE 1 MG, INFUVITE 10 ML in NACL 0.9% 1000 ML 1,000 ML IV ONE (21:20)
[2018-10-17 21:22] LABS: Alanine Aminotransferase 93 units/L (7-56); Albumin 4.3 g/dL (3.9-5); BUN/Creatinine Ratio 6; Blood Urea Nitrogen 5 mg/dL (9-20); Calcium 8.5 mg/dL (8.4-10.2); Hemolysis Index 4
[2018-10-17] MEDS ORDERED: K-DUR PO ONE ×2 (22:15→22:22)
[2018-10-17] MEDS ORDERED: ZOFRAN ONE (22:18)
[2018-10-17] MEDS ORDERED: MORPHINE ONE (22:19)
[2018-10-17 22:56] LABS: Bacteria,Urine 1+ /HPF (Negative); Hyaline Casts,Urine 3 /LPF; Mucus,Urine 3+ /HPF
[2018-10-17 23:00] LABS: Color,Urine Yellow (Yellow)
[2018-10-17 23:01] LABS: Ictotest,Urine Negative (Negative)
[2018-10-17 23:02] LABS: Amphetamine Screen,Urine PRESUMPTIVE NEGATIVE; Benzodiazepines Screen,Urine PRESUMPTIVE NEGATIVE; Cannabinoid Screen,Urine PRESUMPTIVE NEGATIVE; Methadone Screen,Urine PRESUMPTIVE NEGATIVE; Opiate Screen,Urine PRESUMPTIVE NEGATIVE
[2018-10-17] MEDS ORDERED: MACROBID PO ONE (23:11)
[2018-10-17 23:23] LABS: Cocaine Screen,Urine PRESUMPTIVE POSITIVE
[2018-10-18] MEDS ORDERED: MACROBID ONE (00:36)
--- NOTE | 2018-10-18 09:45 | Consultation ---
History of Present Illness - Reason for Consult Consult date: 10/18/18 Reason for consult: Mental Health Evaluation Requesting physician: SARABJIT FAN - Chief Complaint Chief complaint: "I don't want to talk" - History of Present Psychiatric Illness 48-year-old AA male who presented to the ER for SI's. Today the patient asked to be seen in 24 hours. He stated that he didn't want to talk, per my observation, the patient had active tremors. His blood alcohol level was 0.27 on arrival to the ER. Medications and Allergies Allergies Allergy/AdvReac Type Severity Reaction Status Date / Time Penicillins Allergy Swelling Verified 02/06/17 12:49 Home Medications Medication Instructions Recorded Confirmed Last Taken Type Clarithromycin [Biaxin] 500 mg PO Q12HR #20 tablet 12/06/14 Unknown Rx Folic Acid [Folvite] 1 mg PO QDAY #30 tablet 12/06/14 Unknown Rx Nortriptyline(Nf) [Pamelor(Nf)] 50 mg PO QHS #30 capsule 12/06/14 Unknown Rx Pantoprazole [Protonix TAB] 40 mg PO BID #20 tablet 12/06/14 Unknown Rx Thiamine [Vitamin B-1] 100 mg PO QDAY #30 tablet 12/06/14 Unknown Rx metroNIDAZOLE [Flagyl TAB] 500 mg PO Q12H #20 tablet 12/06/14 Unknown Rx Potassium Chloride [K-Dur] 20 meq PO QDAY #7 tablet 10/13/16 Unknown Rx Ibuprofen [Motrin] 600 mg PO Q8H PRN #30 tablet 07/11/18 Unknown Rx Ibuprofen [Motrin 800 MG tab] 800 mg PO Q8HR PRN #20 tablet 08/31/18 Unknown Rx Sulfamethoxazole/Trimethoprim 1 each PO BID #14 tablet 08/31/18 Unknown Rx [Bactrim DS TAB] Nitrofurantoin [place]/M-Cryst 100 mg PO Q12HR #14 capsule 10/18/18 Unknown Rx [Macrobid CAP] Past psychiatric history - Past Medical History Past Medical History: other (Unable to obtain ) Past Surgical History: Other (Unable to obtain ) - past Psychiatric treatment and history psychiatric treatment history: Unable to obtain a psy hx and fam psy hx. - Social History Social history: other (Unable to obtain ) Mental Status Exam - Vital signs Last Vital Signs Temp 98 F 10/18/18 05:00 Pulse 94 H 10/18/18 05:00 Resp 16 10/18/18 05:00 BP 100/67 10/18/18 05:00 Pulse Ox 98 10/18/18 05:00 - Exam Narrative exam: Unable to complete the MSE because the patient's condition. Results Result Diagrams: 10/17/18 20:46 10/17/18 20:46 Abnormal lab results 10/17/18 10/17/18 10/17/18 Range/Units 20:46 20:46 20:46 RDW 17.7 H (13.2-15.2) % Seg Neutrophils % 72.9 H (40.0-70.0) % Potassium 3.3 L (3.6-5.0) mmol/L BUN 5 L (9-20) mg/dL AST 133 H (5-40) units/L ALT 93 H (7-56) units/L Urine WBC (Auto) (0.0-6.0) /HPF Plasma/Serum Alcohol 0.27 H (0-0.07) % 10/17/18 10/18/18 Range/Units 21:12 04:35 RDW (13.2-15.2) % Seg Neutrophils % (40.0-70.0) % Potassium (3.6-5.0) mmol/L BUN (9-20) mg/dL AST (5-40) units/L ALT (7-56) units/L Urine WBC (Auto) 18.0 H (0.0-6.0) /HPF Plasma/Serum Alcohol 0.10 H (0-0.07) % All other labs normal. Assessment and Plan Assessment and plan: Impression: Today the patient asked to be seen in 24 hours. Mild to moderate tremors noted (etoh). Recommendations/Plan: Continue 1013 and reassess the patient in 24 hours. Medical team manage CIWA. Continue to monitor the patient for etoh withdrawals. Dipso: The patient was referred to inpatient psy services. Will staff with Dr Rubio Randall.
[2018-10-18] MEDS ORDERED: ATIVAN PO ONE (11:15)
[2018-10-18 11:31] VITALS: BP 109/72
== END 2018-10-18 14:22 ==
LOC: ED 19:46
DX: F10.920 Alcohol use, unspecified with intoxication, uncomplicated (principal); N39.0 Urinary tract infection, site not specified; R74.0 Nonspecific elevation of levels of transaminase and lactic acid dehydrogenase [LDH]; F14.10 Cocaine abuse, uncomplicated; I10 Essential (primary) hypertension; F17.200 Nicotine dependence, unspecified, uncomplicated; G89.29 Other chronic pain; Z79.899 Other long term (current) drug therapy; Z98.890 Other specified postprocedural states; Z88.0 Allergy status to penicillin
CPT/HCPCS: 36415; 80053; 80307; 81001; 85025; 87086; 96365; 96366; 99285; J2405; J3411; J7030; 80320; G0480; J2270

== ENCOUNTER 2019-04-19 11:36 | Emergency (ER) | payer MEDICARE ==
--- NOTE | 2019-04-19 12:06 | Emergency Department Report ---
Blank Doc - Documentation Documentation: 48-year-old male that presents with n/v and abdominal pain. This initial assessment/diagnostic orders/clinical plan/treatment(s) is/are subject to change based on patient's health status, clinical progression and re- assessment by fellow clinical providers in the ED. Further treatment and workup at subsequent clinical providers discretion. Patient/guardians urged not to elope from the ED as their condition may be serious if not clinically assessed and managed. Initial orders include: 1- Patient sent to [facility] for further evaluation and treatment 2- UA 3- labs
[2019-04-19 12:07] VITALS: BP 144/91
[2019-04-19] MEDS ORDERED: ONDANSETRON 4 MG/2 ML INJ IV ONE (12:23)
[2019-04-19] MEDS ORDERED: SODIUM CHLORIDE 0.9% 1000 ML 1,000 ML IV ONE (12:23)
[2019-04-19] MEDS ORDERED: KETOROLAC 30 MG/1 ML INJ IV ONE (12:23)
[2019-04-19 12:38] LABS: Basophils # (Auto) 0.1 K/mm3 (0.0-0.1); Basophils % (Auto) 0.5 % (0.0-1.8); Eosinophils # (Auto) 0.1 K/mm3 (0.0-0.4); Eosinophils % (Auto) 0.5 % (0.0-4.3); Hematocrit 37.3 % (35.5-45.6); Hemoglobin 12.1 gm/dl (11.8-15.2); Lymphocytes # (Auto) 1.5 K/mm3 (1.2-5.4); Lymphocytes % (Auto) 8.2 % (13.4-35.0); Mean Corpuscular HGB Conc 33 % (32-34); Mean Corpuscular Volume 77 fl (84-94); Monocytes # (Auto) 1.5 K/mm3 (0.0-0.8); Monocytes % (Auto) 8.5 % (0.0-7.3); Platelet Count 258 K/mm3 (140-440); Red Blood Count 4.81 M/mm3 (3.65-5.03)
[2019-04-19 12:40] LABS: Red Cell Distribution Width 22.1 % (13.2-15.2)
[2019-04-19 12:44] LABS: Bilirubin,Urine NEG (Negative); Blood,Urine NEG (Negative); Color,Urine Yellow (Yellow); Protein,Urine <15 mg/dL mg/dL (Negative); Urobilinogen,Urine < 2.0 mg/dL (<2.0)
[2019-04-19 13:02] LABS: Albumin 3.5 g/dL (3.9-5); Calcium 9.3 mg/dL (8.4-10.2)
--- NOTE | 2019-04-19 13:09 | Cat Scan Report ---
CT ABDOMEN AND PELVIS WITHOUT CONTRAST HISTORY: Lower abdominal pain. COMPARISON: No relevant comparative imaging. TECHNIQUE: Routine abdominal and pelvic CT exam performed without contrast. Lack of intravenous cont rast limits evaluation of the vascular and solid organs.. All CT scans at this location are performed using CT dose reduction for ALARA by means of automated exposure control. FINDINGS: CT ABDOMEN: Lung Bases: No significant abnormality. Liver: No significant abnormality. Biliary: No significant abnormality. Spleen: No significant abnormality. Unenlarged. Pancreas: No significant abnormality. Adrenals: No significant abnormality. Kidneys: Moderate bilateral hydronephrosis and hydroureter. No urinary calculus, mass or cyst identif ied. Mild bilateral perinephric stranding. Lymphatics: No lymphadenopathy. Vasculature: No significant abnormality. Bowel/Peritoneum: No significant abnormality. No free air. No free fluid. Normal appendix. CT PELVIC: : The urinary bladder is markedly distended and measures 19 cm in craniocaudal dimension. No bladde r mass or calculus. Normal bladder wall thickness. The prostate measures approximately 5.3 x 3.8 x 3. 8 cm and has an irregular anterior margin. Lymphatics: No lymphadenopathy. Osseous Structures: No aggressive appearing osseous lesions. Additional Findings: None IMPRESSION: 1. Urinary retention with moderate bilateral hydronephrosis and hydroureter. 2. Moderate prostate enlargement and irregular contour of the prostate. 3. No urinary calculus. 4. No signs of pyelonephritis or pyonephrosis. Signer Name: Carl Chung MD Signed: 04/19/2019 1:04 PM Workstation Name: [id number]
--- NOTE | 2019-04-19 13:14 | Emergency Department Report ---
ED Abdominal Pain HPI - General Chief Complaint: Abdominal Pain Stated Complaint: ABD PAIN Time Seen by Provider: 04/19/19 12:05 Source: patient Mode of arrival: Ambulatory Limitations: No Limitations - History of Present Illness Initial Comments: This is a 48-year-old male with no prior medical history who presents the ED complaining of lower flank and abdominal pain for the past 2 to 3 days. Patient also admits nausea. Patient denies alcohol use or recent unusual food. Patient states for the past 2 days she has been unable to hold his food down. Patient denies any fever, diarrhea, chest pain, shortness of breath. Patient states that he is actually been constipated. MD Complaint: abdominal pain, flank pain Location: LLQ, bilateral flank Radiation: none Migration to: no migration Severity scale (0 -10): 10 Quality: cramping, stabbing - Related Data Previous Rx's Medication Instructions Recorded Last Taken Type Clarithromycin [Biaxin] 500 mg PO Q12HR #20 tablet 12/06/14 Unknown Rx Folic Acid [Folvite] 1 mg PO QDAY #30 tablet 12/06/14 Unknown Rx Nortriptyline(Nf) [Pamelor(Nf)] 50 mg PO QHS #30 capsule 12/06/14 Unknown Rx Pantoprazole [Protonix TAB] 40 mg PO BID #20 tablet 12/06/14 Unknown Rx Thiamine [Vitamin B-1] 100 mg PO QDAY #30 tablet 12/06/14 Unknown Rx metroNIDAZOLE [Flagyl TAB] 500 mg PO Q12H #20 tablet 12/06/14 Unknown Rx Potassium Chloride [K-Dur] 20 meq PO QDAY #7 tablet 10/13/16 Unknown Rx Ibuprofen [Motrin] 600 mg PO Q8H PRN #30 tablet 07/11/18 Unknown Rx Ibuprofen [Motrin 800 MG tab] 800 mg PO Q8HR PRN #20 tablet 08/31/18 Unknown Rx Sulfamethoxazole/Trimethoprim 1 each PO BID #14 tablet 08/31/18 Unknown Rx [Bactrim DS TAB] Nitrofurantoin [place]/M-Cryst 100 mg PO Q12HR #14 capsule 10/18/18 Unknown Rx [Macrobid CAP] Ketorolac [Toradol] 10 mg PO Q6H PRN #30 tablet 04/19/19 Unknown Rx Tamsulosin [Flomax] 0.4 mg PO QDAY #10 cap 04/19/19 Unknown Rx Allergies Allergy/AdvReac Type Severity Reaction Status Date / Time Penicillins Allergy Swelling Verified 02/06/17 12:49 ED Review of Systems ROS: Stated complaint: ABD PAIN Other details as noted in HPI Comment: All other systems reviewed and negative ED Past Medical Hx - Past Medical History Previous Medical History?: Yes Hx Hypertension: Yes (noncompliant with meds) Hx Congestive Heart Failure: No Hx Diabetes: No Hx Seizures: Yes Hx Psychiatric Treatment: Yes (ETOH, crack cocaine) Hx Asthma: No Hx COPD: No Additional medical history: chronic pain - Surgical History Past Surgical History?: Yes Additional Surgical History: right ankle and maxillofacial surgery - Social History Smoking Status: Former Smoker Substance Use Type: None - Medications Home Medications: Home Medications Medication Instructions Recorded Confirmed Last Taken Type Clarithromycin [Biaxin] 500 mg PO Q12HR #20 tablet 12/06/14 Unknown Rx Folic Acid [Folvite] 1 mg PO QDAY #30 tablet 12/06/14 Unknown Rx Nortriptyline(Nf) [Pamelor(Nf)] 50 mg PO QHS #30 capsule 12/06/14 Unknown Rx Pantoprazole [Protonix TAB] 40 mg PO BID #20 tablet 12/06/14 Unknown Rx Thiamine [Vitamin B-1] 100 mg PO QDAY #30 tablet 12/06/14 Unknown Rx metroNIDAZOLE [Flagyl TAB] 500 mg PO Q12H #20 tablet 12/06/14 Unknown Rx Potassium Chloride [K-Dur] 20 meq PO QDAY #7 tablet 10/13/16 Unknown Rx Ibuprofen [Motrin] 600 mg PO Q8H PRN #30 tablet 07/11/18 Unknown Rx Ibuprofen [Motrin 800 MG tab] 800 mg PO Q8HR PRN #20 tablet 08/31/18 Unknown Rx Sulfamethoxazole/Trimethoprim 1 each PO BID #14 tablet 08/31/18 Unknown Rx [Bactrim DS TAB] Nitrofurantoin [place]/M-Cryst 100 mg PO Q12HR #14 capsule 10/18/18 Unknown Rx [Macrobid CAP] Ketorolac [Toradol] 10 mg PO Q6H PRN #30 tablet 04/19/19 Unknown Rx Tamsulosin [Flomax] 0.4 mg PO QDAY #10 cap 04/19/19 Unknown Rx ED Physical Exam - General Limitations: No Limitations General appearance: alert, in no apparent distress - Head Head exam: Present: atraumatic, normocephalic - Eye Eye exam: Present: normal appearance - ENT ENT exam: Present: mucous membranes moist - Neck Neck exam: Present: normal inspection - Respiratory Respiratory exam: Present: normal lung sounds bilaterally. Absent: respiratory distress - Cardiovascular Cardiovascular Exam: Present: regular rate, normal rhythm. Absent: systolic mu rmur, diastolic murmur, rubs, gallop - GI/Abdominal GI/Abdominal exam: Present: soft, tenderness, normal bowel sounds. Absent: distended, guarding, rebound - Rectal Rectal exam: Present: deferred - Extremities Exam Extremities exam: Present: normal inspection, full ROM - Back Exam Back exam: Present: normal inspection, full ROM, CVA tenderness (R), CVA tenderness (L). Absent: tenderness - Neurological Exam Neurological exam: Present: alert, oriented X3 - Psychiatric Psychiatric exam: Present: normal affect, normal mood - Skin Skin exam: Present: warm, dry, intact, normal color. Absent: rash ED Course Vital Signs 04/19/19 12:06 Temperature 97.6 F Pulse Rate 82 Respiratory 20 Rate Blood Pressure 144/91 O2 Sat by Pulse 100 Oximetry ED Medical Decision Making - Lab Data Result diagrams: 04/19/19 12:19 04/19/19 12:19 Laboratory Tests 04/19/19 04/19/19 04/19/19 12:19 12:19 12:19 WBC 17.7 H RBC 4.81 Hgb 12.1 Hct 37.3 MCV 77 L MCH 25 L MCHC 33 RDW 22.1 H Plt Count 258 Lymph % (Auto) 8.2 L [place] % (Auto) 8.5 H Eos % (Auto) 0.5 Baso % (Auto) 0.5 Lymph # 1.5 [place] # 1.5 H Eos # 0.1 Baso # 0.1 Seg Neutrophils % 82.3 H Seg Neutrophils # 14.6 H Sodium 139 Potassium 4.0 Chloride 99.8 Carbon Dioxide 22 Anion Gap 21 BUN 20 Creatinine 2.5 H Estimated GFR 33 BUN/Creatinine Ratio 8 Glucose 99 Calcium 9.3 Total Bilirubin 0.60 AST 14 ALT 10 Alkaline Phosphatase 78 Total Protein 7.5 Albumin 3.5 L Albumin/Globulin Ratio 0.9 Lipase 16 Urine Color Yellow Urine Turbidity Cloudy Urine pH 5.0 Ur Specific [place] 1.010 Urine Protein <15 mg/dl Urine Glucose (UA) Neg Urine Ketones Neg Urine Blood Neg Urine Nitrite Neg Urine Bilirubin Neg Urine Urobilinogen < 2.0 Ur Leukocyte Esterase Lg Urine WBC (Auto) 66.0 H Urine RBC (Auto) 11.0 U Epithel Cells (Auto) 4.0 Uric Acid Crystals 1+ - Radiology Data Radiology results: report reviewed, image reviewed CT ABDOMEN AND PELVIS WITHOUT CONTRAST HISTORY: Lower abdominal pain. COMPARISON: No relevant comparative imaging. TECHNIQUE: Routine abdominal and pelvic CT exam performed without contrast. Lack of intravenous contrast limits evaluation of the vascular and solid organs.. All CT scans at this location are performed using CT dose reduction for ALARA by means of automated exposure control. FINDINGS: CT ABDOMEN: Lung Bases: No significant abnormality. Liver: No significant abnormality. Biliary: No significant abnormality. Spleen: No significant abnormality. Unenlarged. Pancreas: No significant abnormality. Adrenals: No significant abnormality. Kidneys: Moderate bilateral hydronephrosis and hydroureter. No urinary calculus, mass or cyst identified. Mild bilateral perinephric stranding. Lymphatics: No lymphadenopathy. Vasculature: No significant abnormality. Bowel/Peritoneum: No significant abnormality. No free air. No free fluid. Normal appendix. CT PELVIC: : The urinary bladder is markedly distended and measures 19 cm in craniocaudal dimension. No bladder mass or calculus. Normal bladder wall thickness. The prostate measures approximately 5.3 x 3.8 x 3.8 cm and has an irregular anterior margin. Lymphatics: No lymphadenopathy. Osseous Structures: No aggressive appearing osseous lesions. Additional Findings: None IMPRESSION: 1. Urinary retention with moderate bilateral hydronephrosis and hydroureter. 2. Moderate prostate enlargement and irregular contour of the prostate. 3. No urinary calculus. 4. No signs of pyelonephritis or pyonephrosis. Signer Name: Carl Chung MD Signed: 04/19/2019 1:04 PM Workstation Name: [id number] - Medical Decision Making This is a 48-year-old male who presents with abdominal pain. All labs were within normal limits. CT scan shows no acute abnormal findings other than specified above. Patient received IV fluids with some medication in the ED. Upon reevaluation patient states that he is feeling better. Discussed all lab findings with the patient. Discussed with patient to follow- up with urologist/GI doctor. Referrals were given to patient. Vital signs are normal patient is in no acute distress. Critical care attestation.: If time is entered above; I have spent that time in minutes in the direct care of this critically ill patient, excluding procedure time. ED Disposition Clinical Impression: Leukocytosis, Abdominal pain, Prostatitis, Urinary retention due to benign prostatic hyperplasia Disposition: TO HOME OR SELFCARE Is pt being admited?: No Does the pt Need Aspirin: No Condition: Stable Instructions: Prostatitis (ED), Flank Pain (ED) Additional Instructions: Make sure to follow up with the primary care physician as discussed. Take all your medications as you've been prescribed. If you have any worsening symptoms or develop new symptoms please return to ED immediately. Prescriptions: Tamsulosin [Flomax] 0.4 mg PO QDAY #10 cap Ketorolac [Toradol] 10 mg PO Q6H PRN #30 tablet PRN Reason: Pain Referrals: ALYSSA PARKS MD [Primary Care Provider] - 3-5 Days [facility] [Provider Group] - 3-5 Days [facility] [Outside] - 3-5 Days [facility] [Outside] - 3-5 Days JOE FU MD [Staff Physician] - 3-5 Days Forms: Work/School Release Form(ED) Time of Disposition: 14:13
[2019-04-19] MEDS ORDERED: cefTRIAXone/NS 1 GM/50 ML 1 GM/50 ML BAG IV ONE (13:26)
== END 2019-04-19 14:54 | disposition home or self-care (01) ==
LOC: ED 11:36
DX: N40.1 Benign prostatic hyperplasia with lower urinary tract symptoms (principal); R33.8 Other retention of urine; D72.829 Elevated white blood cell count, unspecified; N41.9 Inflammatory disease of prostate, unspecified; R10.30 Lower abdominal pain, unspecified; I10 Essential (primary) hypertension; G43.909 Migraine, unspecified, not intractable, without status migrainosus; Z98.890 Other specified postprocedural states; Z87.891 Personal history of nicotine dependence; Z88.0 Allergy status to penicillin; Z79.899 Other long term (current) drug therapy
CPT/HCPCS: 36415; 74176; 80053; 81001; 83690; 85025; 87086; 96365; 96375; 99284; J0696; J1885; J2405; J7030

== ENCOUNTER 2020-02-14 19:48 | Emergency (ER) | payer MEDICARE | END 2020-02-14 23:00 | disposition left against medical advice (07) | LOC: ED 19:48 | DX: F10.10 Alcohol abuse, uncomplicated (principal); Z53.21 Procedure and treatment not carried out due to patient leaving prior to being seen by health care provider ==